=== PATIENT | male | born 1985 | race Caucasian/White ===

== ENCOUNTER 2016-12-27 21:54 | Emergency (ER) | payer OTHER ==
[~2016-12-27] VITALS: Ht 180.3 cm; Wt 97.5 kg
[2016-12-27 22:15] VITALS: BP 133/85
[2016-12-27 23:25] LABS: BASO # 0.1 x10^3/uL (0.0-0.2); BASO % 1 % (0-3); EOS # 0.1 x10^3/uL (0.0-0.7); EOS % 1 % (0-3); HEMATOCRIT 47.9 % (39.0-53.0); HEMOGLOBIN 16.9 g/dL (13.0-17.5); LYMPH # 3.3 x10^3/uL (1.0-4.8); LYMPH % 30 % (24-48); MEAN CORPUSCULAR HEMOGLOBIN 33 pg (25-35); MEAN CORPUSCULAR HGB CONC 35 g/dL (31-37); MEAN CORPUSCULAR VOLUME 93 fL (79-100); MONO # 0.8 x10^3/uL (0.0-1.1); MONO % 8 % (0-9); NEUT # 6.7 x10^3uL (1.8-7.7); NEUT % 60 % (31-73); PLATELET COUNT 248 x10^3/uL (140-400); RED BLOOD COUNT 5.14 x10^6/uL (4.30-5.70); RED CELL DISTRIBUTION WIDTH 12.6 % (11.5-14.5); WHITE BLOOD COUNT 11.1 x10^3/uL (4.0-11.0)
[2016-12-27 23:30] LABS: BACTERIA,URINE 0 /HPF (0-FEW); BILIRUBIN,URINE NEG (NEG); CLARITY,URINE CLEAR; COLOR,URINE YELLOW; GLUCOSE,URINE NEG (NEG); NITRITE,URINE NEG (NEG); RBC,URINE 0 /HPF (0-2); UROBILINOGEN,URINE 0.2 mg/dL (0.2 mg/dL); WBC,URINE RARE /HPF (0-4)
[2016-12-27 23:34] LABS: ALBUMIN 4.2 g/dL (3.4-5.0); ALBUMIN/GLOBULIN RATIO 1.3 (1.0-1.7); CALCIUM 9.1 mg/dL (8.5-10.1); CREATININE 1.3 mg/dL (0.7-1.3); POTASSIUM 3.5 mmol/L (3.5-5.1); TOTAL BILIRUBIN 0.8 mg/dL (0.2-1.0); TOTAL PROTEIN 7.5 g/dL (6.4-8.2)
--- NOTE | 2016-12-28 | RAD ---
Exam performed: Limited right upper quadrant sonogram. Indication: Right upper abdominal pain today Date of Service: 12/27/2016 . Comparison: None available Technique: Real-time grayscale imaging of the right upper abdomen is performed and images are obtained. Findings: The liver is normal in size and echogenicity without any focal lesions. There is no intra or extrahepatic biliary ductal dilatation. The gallbladder is well distended without any shadowing intraluminal calculus, pericholecystic fluid or gallbladder wall thickening. The gallbladder wall measures 2.6 mm. The common bile duct measures 2.4 mm. The right kidney appears unremarkable and measures 10.8 x 4.9 cm in length. There is no hydronephrosis or perinephric fluid collection. The visualized pancreas , aorta and IVC appear unremarkable. Impression: 1. Essentially unremarkable right upper quadrant sonogram. Electronically signed by: Rukhsana Stone MD (12/27/2016 11:56 PM)
--- NOTE | 2016-12-28 00:16 | PHYS DOC ---
Past History Past Medical History: No Pertinent History Past Surgical History: No Surgical History Alcohol Use: Occasionally Drug Use: None Adult General Chief Complaint Chief Complaint: ABDOMINAL PAIN HPI HPI Patient is a 31 year old M who presents with right upper quadrant pain that started this afternoon and not related to anything. Patient states the pain increases or decreases the pain. Patient denies any fevers. Patient denies any nausea/vomiting/diarrhea. She has had no previous abdominal surgeries. Patient has no other complaints. Pertinent exam findings: Positive tender to palpation right upper quadrant with abdomen soft and bowel sounds heard in all 4 quadrants ED course: Patient was seen and examined a CBC, CMP, lipase, ultrasound right upper quadrant were ordered Pertinent results: Ultrasound was unremarkable for any gallbladder disease White count was 11.1 trust the blood work was unremarkable MDM: After reviewing the chart, CC/HPI/PMH, physical exam, [lab results], [ radiological results], do not believe the patient has intra-abdominal emergency warranting further workup and/or admission at this time. I do not believe the patient has acute cholecystitis at the elevated white count of 11.1. I did offer the patient a CT scan abdomen and pelvis since the ultrasound was unremarkable however he declined understanding all risks including and disability elected to follow-up with his PCP. Recommended patient obtain a HIDA scan and possibly an upper EGD as an outpatient. Patient is comfortable being discharged home. Patient is stable for discharge. Additional verbal discharge instructions were provided to the patient and that if symptoms get worse or any new symptoms arise that are worrisome to the patient he is to return to the emergency room immediately Review of Systems Review of Systems GEN: Denies fevers, chills, sweats HEENT: Denies blurred vision, sore throat CV: Denies chest pain RESP: Denies shortness of air, cough GI: Denies n/v/d, positive right upper quadrant pain NEURO: Denies confusion, dizziness MSK: Denies weakness, joint pain/swelling Physical Exam Physical Exam GEN.: No apparent distress. Alert and oriented. HEENT: Head is normocephalic, atraumatic NECK: Supple. LUNGS: CTAB. HEART: RRR, S1, S2 present. Peripheral pulses intact ABDOMEN: Soft, positive tender to palpation right upper quadrant. Positive bowel sounds. EXTREMITIES: Without any cyanosis. NEUROLOGIC: Normal speech, normal tone PSYCHIATRIC: Normal affect, normal mood. SKIN: No ulcerations Current Patient Data Vital Signs Vital Signs Date Time Temp Pulse Resp B/P (MAP) Pulse Ox O2 Delivery O2 Flow Rate FiO2 12/27/16 22:15 98.3 97 96 Room Air Lab Results Laboratory Tests Test 12/27/16 22:50 12/27/16 23:00 Urine Collection Type Unknown Urine Color Yellow Urine Clarity Clear Urine pH 7.0 Urine Specific Walker 1.015 Urine Protein Neg (NEG-TRACE) Urine Glucose (UA) Neg mg/dL (NEG) Urine Ketones (Stick) Trace mg/dL (NEG) Urine Blood Neg (NEG) Urine Nitrite Neg (NEG) Urine Bilirubin Neg (NEG) Urine Urobilinogen Dipstick 0.2 mg/dL (0.2 mg/dL) Urine Leukocyte Esterase Neg (NEG) Urine RBC 0 /HPF (0-2) Urine WBC Rare /HPF (0-4) Urine Squamous Epithelial Cells None /LPF Urine Bacteria 0 /HPF (0-FEW) White Blood Count 11.1 x10^3/uL (4.0-11.0) H Red Blood Count 5.14 x10^6/uL (4.30-5.70) Hemoglobin 16.9 g/dL (13.0-17.5) Hematocrit 47.9 % (39.0-53.0) Mean Corpuscular Volume 93 fL (79-100) Mean Corpuscular Hemoglobin 33 pg (25-35) Mean Corpuscular Hemoglobin Concent 35 g/dL (31-37) Red Cell Distribution Width 12.6 % (11.5-14.5) Platelet Count 248 x10^3/uL (140-400) Neutrophils (%) (Auto) 60 % (31-73) Lymphocytes (%) (Auto) 30 % (24-48) Monocytes (%) (Auto) 8 % (0-9) Eosinophils (%) (Auto) 1 % (0-3) Basophils (%) (Auto) 1 % (0-3) Neutrophils # (Auto) 6.7 x10^3uL (1.8-7.7) Lymphocytes # (Auto) 3.3 x10^3/uL (1.0-4.8) Monocytes # (Auto) 0.8 x10^3/uL (0.0-1.1) Eosinophils # (Auto) 0.1 x10^3/uL (0.0-0.7) Basophils # (Auto) 0.1 x10^3/uL (0.0-0.2) Sodium Level 142 mmol/L (136-145) Potassium Level 3.5 mmol/L (3.5-5.1) Chloride Level 105 mmol/L (98-107) Carbon Dioxide Level 28 mmol/L (21-32) Anion Gap 9 (6-14) Blood Urea Nitrogen 14 mg/dL (8-26) Creatinine 1.3 mg/dL (0.7-1.3) Estimated GFR (Cockcroft-Gault) 64.0 BUN/Creatinine Ratio 11 (6-20) Glucose Level 101 mg/dL (70-99) H Calcium Level 9.1 mg/dL (8.5-10.1) Total Bilirubin 0.8 mg/dL (0.2-1.0) Aspartate Amino Transferase (AST) 20 U/L (15-37) Alanine Aminotransferase (ALT) 41 U/L (16-63) Alkaline Phosphatase 102 U/L (46-116) Total Protein 7.5 g/dL (6.4-8.2) Albumin 4.2 g/dL (3.4-5.0) Albumin/Globulin Ratio 1.3 (1.0-1.7) Lipase 95 U/L (73-393) EKG EKG [] Radiology/Procedures Radiology/Procedures Right upper quadrant ultrasound: Impression: 1. Essentially unremarkable right upper quadrant sonogram. [] Course & Med Decision Making Course & Med Decision Making Pertinent Labs and Imaging studies reviewed. (See chart for details) [] Dragon Disclaimer Dragon Disclaimer This chart was dictated in whole or in part using Voice Recognition software in a busy, high-work load, and often noisy Emergency Department environment. It may contain unintended and wholly unrecognized errors or omissions. Departure Departure: Impression: Primary Impression: RUQ abdominal pain Disposition: 01 HOME, SELF-CARE Condition: IMPROVED Referrals: PCP,NO (PCP) Patient Instructions: Abdominal Pain (Nonspecific) Additional Instructions: Recommend patient follow with PCP in one to 2 days and recommend an outpatient HIDA scan and possibly an outpatient EGD BERNARDO JOSEPH DO Dec 28, 2016 00:16
== END 2016-12-28 00:20 | disposition home or self-care (01) ==
LOC: ER 21:54
DX: R10.11 Right upper quadrant pain (principal)
CPT/HCPCS: 36415; 76705; 80053; 81001; 83690; 85027; 99285-25

== ENCOUNTER 2017-09-23 21:51 | Emergency (ER) | payer OTHER ==
[~2017-09-23] VITALS: Ht 180.3 cm; Wt 102.1 kg
[2017-09-23 22:00] VITALS: BP 139/80
[2017-09-23] MEDS ORDERED: KETOROLAC 60 MG/2 ML VIAL. IM ONE ×2 (22:30→22:33)
[2017-09-23] MEDS ORDERED: NAPR500T8 PO (22:31)
[2017-09-23] MEDS ORDERED: FAMO-63 PO (22:31)
--- NOTE | 2017-09-23 22:35 | PHYS DOC ---
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 Patient states he's had intermittent right knee pains for a few months previously evaluated at [place] and is currently in physical therapy for this. He says that yesterday he went on run and woke up this morning with right knee warmth, stiffness and swelling. He complains of posterior medial right knee discomfort worse with weightbearing and twisting denies any clicking or leg giving out. He does state that at times his knee will catch him feel as if it needs to pop. No numbness tingling weakness or radiating symptoms. Onset: other Severity: moderate Pain/Injury Location: right knee Method of Injury: other Modifying Factors: worse with jarring, worse with movement, improves with rest Allergies: Coded Allergies: Penicillins (Verified Allergy, Intermediate, Rash, 09/23/17) Past Medical History Medical History: no pertinent history Surgical History: noncontributory Social History Smoker: non-smoker Alcohol: none Drugs: none Review of Systems Constitutional: denies chills, denies fever Respiratory: denies cough, denies shortness of breath Cardiovascular: denies chest pain, denies palpitations Gastrointestinal: denies nausea, denies vomiting Musculoskeletal: see HPI Psychiatric/Neurological: see HPI Physical Exam General Appearance: WD/WN, no apparent distress Neck: non-tender, supple Cardiovascular/Respiratory: normal peripheral pulses, no respiratory distress Back: no CVA tenderness, no vertebral tenderness Knees: left knee non-tender, left knee normal inspection, left knee normal range of motion, left knee no evidence of injury, right knee other (slight effusion with warmth, postero-medial tenderness at the joint line otherwise ligaments appear to be stable no bony tenderness or palpable bony deformity extremity is neurovascularly intact) Neurologic/Tendon: normal sensation, normal motor functions, normal tendon functions, responds to pain, no evidence tendon injury Psychiatric: alert, oriented x 3 Skin: normal color, warm/dry Orders, Labs, Meds Toradol 60 mg IM given Scotty wrap applied neurovascularly intact. I discussed the likelihood of meniscal injury. Plain films would be of no benefit if symptoms persist despite conservative treatment MRI evaluation as well as orthopedic consultation indicated. I discussed the departure instructions with the patient and he expressed agreement and understanding. Departure Time of Disposition: 22:32 Disposition: 01 HOME, SELF-CARE Diagnosis: right knee pain probable posterior horn medial men Condition: GOOD Patient Instructions: Knee, Cartilage and its Function, RICE - Routine Care for Injuries, [id number] Additional Instructions: Please review the patient education materials given by ED staff. RICE, see handout. [id number] Tylenol as needed for breakthrough discomfort. Prescription: Naproxen Pepcid (GI protective with chronic NSAIDs) Wear the Scotty wrap as needed for symptom control. No PT until cleared by your doctor. As discussed you will likely need an MRI evaluation to accurately define your knee injury. Follow-up with your doctor next week for recheck. Return to ED with new or changing symptoms. LAUREN DUBOSE DO Sep 23, 2017 22:35
== END 2017-09-23 22:45 | disposition home or self-care (01) ==
LOC: ER 21:51
DX: M25.561 Pain in right knee (principal); Z88.0 Allergy status to penicillin
CPT/HCPCS: 96372; 99283; J1885